=== PATIENT | female | born 1955 | race Caucasian/White ===

== ENCOUNTER → 2017-06-19 | Outpatient (CLI) | payer BC ==
[~2017-06-19] MED LIST: B-COTAB18 PO; CALC-206 PO; NAPR-1169 PO; ZNT/150 PO
--- NOTE | 2017-06-19 16:09 | MAMMOGRAPHY REPORT ---
BILATERAL DIGITAL SCREENING MAMMOGRAM TOMOSYNTHESIS WITH CAD: 06/19/2017 CLINICAL HISTORY: Routine screening. Patient has no complaints. TECHNIQUE: Breast tomosynthesis in addition to standard 2D mammography was performed. Current study was also evaluated with a Computer Aided Detection (CAD) system. COMPARISON: Comparison is made to exams dated: 06/14/2015 mammogram, 06/17/2016 mammogram, 06/13/2014 m ammogram, 06/09/2013 mammogram, 06/08/2012 mammogram, and 06/03/2011 mammogram - [facility] enter. BREAST COMPOSITION: The tissue of both breasts is extremely dense, which lowers the sensitivity of m ammography. FINDINGS: No suspicious masses, calcifications, or areas of architectural distortion are noted in ei ther breast. There has been no significant interval change compared to prior exams. Bilateral benign -appearing calcifications are not significantly changed. IMPRESSION: ACR BI-RADS CATEGORY 2: BENIGN There is no mammographic evidence of malignancy. A 1 year screening mammogram is recommended. The pa tient will receive written notification of the results. Approximately 10% of breast cancers are not detected with mammography. A negative mammographic report should not delay biopsy if a clinically suggestive mass is present. Yudelka Morel M.D. /:06/19/2017 15:50:29 [employer] Mechanic: Nicolas Charles M, [facility] letter sent: Normal 1/2 BI-RADS Code: ACR BI-RADS Category 2: Benign
== END | disposition home or self-care (01) ==
LOC: C.MAMM 14:27
PROVIDERS: ATTEND Family Medicine
DX: Z12.31 Encounter for screening mammogram for malignant neoplasm of breast (principal)

== ENCOUNTER 2023-09-02 17:30 | Inpatient (IN) ==
--- NOTE | 2023-09-02 18:01 | ED Triage Note ---
Date of Service September 02, 2023 History of Present Illness This patient was briefly evaluated while in triage. An abbreviated physical exam was performed. This patient is a 67-year-old Female who presents to the ED for evaluation of vertigo. Headache as well. Worst headache of life this am. No trauma or injury. Dizzy like room spinning. Not eating now. Physical Exam GENERAL: 67 year old female. In wheeled chair with sunglasses on holding onto L armrest. SKIN: No lesions or rashes. HEART: Regular rate and rhythm. LUNGS: Clear to auscultation. NEURO: Alert and oriented. No deficits. MUSCULOSKELETAL: No deformities to inspection of the extremities. PSYCH: Patient is pleasant and answers questions appropriately. Initial orders for labs and / or imaging were placed and patient was placed in the waiting area until a bed is available. Please see further documentation for the full ED course.
[2023-09-02] MEDS ORDERED: diphenhydrAMINE 50 MG/ML VIAL IV STA (18:10)
[2023-09-02] MEDS ORDERED: ACETAMINOPHEN 1000 MG/100 ML IV IV STA (18:10)
[2023-09-02] MEDS ORDERED: PROCHLORPERAZINE 5 MG/ML 2 ML VIAL IV STA (18:10)
[2023-09-02] MEDS ORDERED: MAGNESIUM SULFATE / D5W 1 GM/100 ML BAG IV ONE (18:10)
[2023-09-02] MEDS ORDERED: SODIUM CHLORIDE 0.9% 1,000 ML IV SCH (18:15)
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
[2023-09-02 18:56] LABS: Basophils # (auto) 0.05 K/uL (0.00-0.20); Basophils % (auto) 0.6 %; Eosinophils # (auto) 0.08 K/uL (0.00-0.50); Hematocrit (blood only) 50.8 % (37.0-47.0); Hemoglobin 17.5 g/dl (12.0-16.0); Immature Granulocytes # (auto) 0.03 K/uL (0.01-0.20); Immature Granulocytes % (auto) 0.4 %; Lymphocytes # (auto) 1.91 K/uL (1.20-3.40); Lymphocytes % (auto) 23.4 %; Mean Corpuscular Hemoglobin 30.3 pg (25.0-34.0); Mean Corpuscular Hgb Conc 34.4 g/dL (32.0-36.0); Mean Platelet Volume 9.8 fL (9.4-12.4); Monocytes # (auto) 0.53 K/uL (0.11-0.59); Monocytes % (auto) 6.5 %; Neutrophils # (auto) 5.57 K/uL (1.40-6.50); Neutrophils % (auto) 68.1 %; Platelet Count 331 K/uL (130-400); RDW Coefficient of Variation 12.3 % (11.5-14.5); RDW Standard Deviation 39.5 fL (36.4-46.3); Red Blood Count 5.77 M/uL (4.20-5.40); White Blood Count 8.17 K/ul (4.8-10.8)
[2023-09-02 18:59] LABS: Albumin Globulin Ratio 1.5 (0.9-2); Albumin Level 4.6 gm/dl (3.4-5.0); BUN Creatinine Ratio 21.7 (10-20); Bilirubin,Total 0.8 mg/dl (0.2-1.0); Calcium 10.3 mg/dl (8.6-10.3); Creatinine Clr Calc Pharmacy 67.8 ml/min; Est GFR (African American) 85.2 ml/min; Est GFR (Non-African American) 73.5 ml/min; Globulin 3.1 gm/dl (2.5-4.0); Potassium 3.6 mmol/L (3.5-5.1); Total Protein 7.7 gm/dl (6.0-8.3)
[2023-09-02] MEDS ORDERED: DEXAMETHASONE SOD INJ 4 MG/ML VIAL IV STA (19:02)
[2023-09-02 19:12] LABS: Partial Thromboplastin Time 26.8 Seconds (21.0-31.0); Prothrombin Time 10.9 Seconds (9.0-12.0)
[2023-09-02] MEDS ORDERED: OPTIRAY 320 500ml IV ONE (19:15)
--- NOTE | 2023-09-02 20:24 | CT Scan Report ---
Exam(s): CT HEAD Without Contrast EXAM: CT Head Without Intravenous Contrast CLINICAL HISTORY: Reason for exam: Headache, dizziness. TECHNIQUE: Axial computed tomography images of the head/brain without intravenous contrast. CTDI is 29 mGy and DLP is 448.01 mGy-cm. Automated exposure control was utilized for the study. A dose lowering technique was utilized adhering to the principles of ALARA. COMPARISON: Head CT 09/01/23. FINDINGS: Brain: Stable hyperdense appearance of the basilar tip, demonstrated to be an aneurysm on CTA. See separately dictated CTA head. No mass effect or acute infarct. No acute hemorrhage. Mild atrophy and chronic white matter disease. No interval change. Ventricles: No hydrocephalus or midline shift. Bones/joints: No acute finding. Soft tissues: No scalp hematoma. Sinuses: Clear. Mastoid air cells: No mastoid effusion. IMPRESSION: 1. Basilar tip aneurysm, better seen on separately dictated CTA, see that report. 2. Mild age related findings. 3. No acute infarct, bleed, or acute intracranial abnormality. 4. No significant interval change. Electronically signed by: Jacquelyn Monreal M.D. 09/02/23 20:23 PM
--- NOTE | 2023-09-02 20:26 | CT Scan Report ---
Exam(s): CTA NECK With Contrast IV Amt: 114 ml optiray 320 EXAM: CT Angiography Neck With Intravenous Contrast CLINICAL HISTORY: Reason for exam: vertigo/MCDONALD. TECHNIQUE: Routine carotid CT angiography protocol was performed with intravenous contrast. NASCET criteria using the distal ICAs for comparison were used for evaluation of stenoses. CTDI is 10.93 mGy and DLP is 396.71 mGy-cm. Automated exposure control was utilized for the study. A dose lowering technique was utilized adhering to the principles of ALARA. MIP reconstructed images were created and reviewed. CONTRAST: Patient received 114 ml optiray 320 of IV contrast COMPARISON: None. FINDINGS: Right common carotid artery: Patent. Right internal carotid artery: Patent. Right vertebral artery: Patent. Left common carotid artery: Patent. Left internal carotid artery: Patent. Left vertebral artery: Patent. Essentially codominant. Other: No significant atherosclerosis of the aorta or carotid bifurcations. IMPRESSION: 1. No dissection, occlusion, or significant stenosis. CAROTID STENOSIS REFERENCE USING NASCET CRITERIA: % ICA stenosis = (1 - narrowest ICA diameter/diameter of distal cervical ICA) x 100. Mild - <50% stenosis. Moderate - 50-69% stenosis. Severe - 70-94% stenosis. Near occlusion - 95-99% stenosis. Occluded - 100% stenosis. Electronically signed by: Jacquelyn Monreal M.D. 09/02/23 20:25 PM
--- NOTE | 2023-09-02 20:32 | CT Scan Report ---
Exam(s): CTA HEAD With Contrast IV Amt: 114 ml optiray 320 EXAM: CT Angiography Head With Intravenous Contrast CLINICAL HISTORY: Reason for exam: vertigo/MCDONALD. TECHNIQUE: Axial computed tomographic angiography images of the head with intravenous contrast. CTDI is 29 mGy and DLP is 448.01 mGy-cm. Automated exposure control was utilized for the study. A dose lowering technique was utilized adhering to the principles of ALARA. MIP reconstructed images were created and reviewed. Mild motion artifact. CONTRAST: Patient received 114 ml optiray 320 of IV contrast COMPARISON: Head CT done earlier . FINDINGS: Right internal carotid artery: Patent. Right anterior cerebral artery: Patent. Right middle cerebral artery: Patent. Right posterior cerebral artery: Patent. Right vertebral artery: Patent. Left internal carotid artery: Patent. Left anterior cerebral artery: Patent. Left middle cerebral artery: Patent. Left posterior cerebral artery: Patent. Left vertebral artery: Patent. Basilar artery: Bulbous basilar tip, ovoid aneurysm measures 7.5 x 6.7 x 4.7 mm. Junctional dilatation basilar tip. Other: IMPRESSION: 1. Basilar tip aneurysm, 7 mm. 2. No other aneurysm. 3. No large vessel occlusion. Electronically signed by: Jacquelyn Monreal M.D. 09/02/23 20:31 PM
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
[2023-09-02] MEDS: LACTATED RINGER'S 1,000 ML IV SCH (23:00)
[2023-09-03] MEDS ORDERED: ACETAMINOPHEN 325 MG TAB PO PRN (00:16)
[2023-09-03] MEDS ORDERED: PROCHLORPERAZINE 5 MG in SYRINGE 4 ML IV PRN (00:16)
[2023-09-03] MEDS ORDERED: FAMOTIDINE 40 MG TABLET PO ONE (00:16)
[2023-09-03] MEDS ORDERED: amLODIPine BESYLATE 5 MG TAB PO ONE (00:16)
[2023-09-03] MEDS ORDERED: IBUPROFEN 800 MG TAB PO PRN (00:16)
[2023-09-03] MEDS ORDERED: ALBUTEROL HFA 8 GM INHALER INH PRN (00:16)
--- NOTE | 2023-09-03 01:13 | Magnetic Resonance Report ---
Exam(s): MRA HEAD Without Contrast EXAM: MR Angiography Head Without Intravenous Contrast CLINICAL HISTORY: Reason for exam: basilar aneurysm, MCDONALD. TECHNIQUE: Magnetic resonance angiography images of the head without intravenous contrast. Mild motion artifact. COMPARISON: CTA head done earlier. FINDINGS: Right internal carotid artery: Patent. Right anterior cerebral artery: Patent. Right middle cerebral artery: Patent. Right posterior cerebral artery: Patent. Right vertebral artery: Patent. Left internal carotid artery: Patent. Left anterior cerebral artery: Patent. Left middle cerebral artery: Patent. Left posterior cerebral artery: Patent. Left vertebral artery: Patent. Basilar artery: Patent. Stable 7 mm aneurysm of the basilar tip. Mild motion and pulsation artifact. Other: IMPRESSION: 1. Basilar tip aneurysm. 2. No other aneurysm, and no large vessel occlusion. Electronically signed by: Jacquelyn Monreal M.D. 09/03/23 01:13 AM
[2023-09-03] MEDS ORDERED: ZOLPIDEM TARTRATE 10 MG TAB PO STA (01:14)
[2023-09-03 05:08] LABS: Hematocrit (blood only) 44.3 % (37.0-47.0); Hemoglobin 15.2 g/dl (12.0-16.0); Mean Corpuscular Hgb Conc 34.3 g/dL (32.0-36.0); Mean Corpuscular Volume 87.5 fL (80.0-100.0); Mean Platelet Volume 9.6 fL (9.4-12.4); Platelet Count 293 K/uL (130-400); RDW Coefficient of Variation 12.1 % (11.5-14.5); RDW Standard Deviation 38.5 fL (36.4-46.3); Red Blood Count 5.06 M/uL (4.20-5.40); White Blood Count 4.95 K/ul (4.8-10.8)
[2023-09-03 05:11] LABS: BUN Creatinine Ratio 21.2 (10-20); Calcium 9.2 mg/dl (8.6-10.3); Creatinine Clr Calc Pharmacy 85.3 ml/min; Est GFR (African American) 106.7 ml/min; Est GFR (Non-African American) 92.1 ml/min
[2023-09-03] MEDS: LACTATED RINGER'S 1,000 ML IV SCH (06:34)
--- NOTE | 2023-09-03 07:59 | Hospitalist Progress Note ---
Date of Service September 03, 2023 Assessment & Plan (1) Vertigo: Plan: 67 y/o female with PMHx of depression and RA presenting with 4 days of persistent vertigo, gait instability, and headache. Patient was seen in the ED 09/01 and was found to have a 6-7 mm basilar tip aneurysm. Symptoms have persisted which prompted her to seek care. Repeat imaging without significant change. Symptomatic improvement with medication administration. Reports dexamethasone helped specifically. Pred taper for suspected labyrinthitis. Compazine PRN for nausea Meclizine 25 mg PO TID Prednisone taper - 60 mg x 5, 40 mg x1, 30 mg x1, 20 mg x1, 10 mg x1, 5 mg x1 Tele for cardiac monitoring Fluid resuscitation with LR x 2 L #Basilar artery aneurysm Patient with 7 mm basilar tip aneurysm. No evidence of thrombosis, dissection or rupture noted on imaging. This is newly discovered as of 09/01/2023 when patient presented to the ER with vertigo. She was recommended to follow-up with neurosurgery. Repeat imaging today demonstrates stable aneurysm. Neurology consultation appreciated Patient should follow-up with neurosurgery for further evaluation of management of her newly found aneurysm. Could consider surgical intervention at the current size of 7 mm. Patient and family would greatly appreciate assistance with facilitating neurosurgery follow-up prior to discharge #Elevated hemoglobin - resolved Elevated on admission. Has resolved at this point with fluid resuscitation. Continue to monitor. #HTN Chronic. Stable. Blood pressure at goal Continue amlodipine 5 mg p.o. nightly #Anxiety Chronic. Stable. Patient and family report a lot of personal stress in the patient's life at this time. She was recently started on Zoloft Continue Zoloft 50 mg p.o. daily #GERD Chronic. Stable. Continue Pepcid Code status: full DVT ppx: low risk, ambulation FENGI: IVF LR @ 125 mL, regular diet Dispo: med/surg with tele, will need f/u with neurosurgery (2) Basilar artery aneurysm: (3) Elevated hemoglobin: (4) Hypertension: (5) Anxiety: (6) GERD (gastroesophageal reflux disease): (7) Acute labyrinthitis: Admission and Anticipated Discharge Date Admission Date: September 02, 2023 Physical Exam Physical Exam: General: patient resting comfortably, NAD, non-toxic in appearance, AA&O x 4 Skin: warm, dry, intact, no rashes or lesions HEENT: NC/AT, PERRL, EOMI with nausea/vertigo induced by eye movement, anicteric sclera, conjunctiva without injection, external ear normal to in spection and nontender, nares patent, moist mucus membranes, dentition intact, no oropharyngeal lesions, neck supple, trachea midline, no LAD, no thyromegaly, no JVD Heart: +S1/S2, regular, no m/r/g Lungs: equal air entry bilaterally, no rales/rhonchi/wheezes Abd: +BS, soft, NT/ND, no masses/organomegaly/ascites Ext: warm, 2+ pulses in UE/LE bilaterally, no clubbing/cyanosis or edema Neuro: nonfocal, patient AA&O x 4, speech intact, no facial droop, moving all extremities on command with equal strength 5/5 No nystagmus. No dysmetria Results & Data Results & Data Vital Signs (Past 12 Hours) Vital Signs Temp Pulse Pulse Resp BP BP Pulse Ox 09/03/23 07:04 36.4 C L 64 16 121/78 98 09/03/23 03:00 73 17 94 09/03/23 02:00 94 09/03/23 01:50 94 09/03/23 01:41 98 09/03/23 01:30 93 09/03/23 01:20 95 09/03/23 01:11 98 09/03/23 01:00 94 09/03/23 00:50 94 09/03/23 00:40 96 09/03/23 00:30 92 09/03/23 00:20 96 09/03/23 00:10 94 09/03/23 00:00 95 09/02/23 23:50 96 09/02/23 23:40 93 09/02/23 23:30 18 97 09/02/23 23:20 16 92 09/02/23 23:10 15 91 09/02/23 23:00 18 95 09/02/23 22:50 19 94 09/02/23 22:40 14 09/02/23 22:30 16 09/02/23 22:20 14 09/02/23 22:10 66 15 96 09/02/23 22:00 63 16 93 09/02/23 22:00 129/74 09/02/23 21:52 62 17 95 09/02/23 21:52 132/90 09/02/23 21:50 61 24 95 09/02/23 21:40 59 L 12 09/02/23 21:30 69 6 L 09/02/23 21:20 69 15 09/02/23 21:10 64 14 09/02/23 21:00 70 16 90 09/02/23 20:50 64 15 97 09/02/23 20:40 64 12 09/02/23 20:30 63 16 98 09/02/23 20:20 66 15 96 09/02/23 20:10 69 15 94 09/02/23 20:00 71 18 94 09/02/23 20:00 147/83 H O2 Del Method 09/03/23 07:04 Room Air 09/03/23 03:00 Room Air 09/03/23 02:00 09/03/23 01:50 09/03/23 01:41 09/03/23 01:30 09/03/23 01:20 09/03/23 01:11 09/03/23 01:00 09/03/23 00:50 09/03/23 00:40 09/03/23 00:30 09/03/23 00:20 09/03/23 00:10 09/03/23 00:00 09/02/23 23:50 09/02/23 23:40 09/02/23 23:30 09/02/23 23:20 09/02/23 23:10 09/02/23 23:00 09/02/23 22:50 09/02/23 22:40 09/02/23 22:30 09/02/23 22:20 09/02/23 22:10 09/02/23 22:00 09/02/23 22:00 09/02/23 21:52 09/02/23 21:52 09/02/23 21:50 09/02/23 21:40 09/02/23 21:30 09/02/23 21:20 09/02/23 21:10 09/02/23 21:00 09/02/23 20:50 09/02/23 20:40 09/02/23 20:30 09/02/23 20:20 09/02/23 20:10 09/02/23 20:00 09/02/23 20:00 (4) Hypertension Hypertension type: unspecified Qualified Code(s): I10 - Essential (primary) hypertension
--- NOTE | 2023-09-03 08:26 | Electrocardiogram Report ---
Test Reason : Blood Pressure : / mmHG Vent. Rate : 077 BPM Atrial Rate : 077 BPM P-R Int : 152 ms QRS Dur : 070 ms QT Int : 398 ms P-R-T Axes : 000 021 061 degrees QTc Int : 450 ms Normal sinus rhythm Normal ECG When compared with ECG of 01-SEP-2023 11:47, No significant change was found Confirmed by Junior Tapia ([id number] on 09/03/2023 8:25:49 AM Referred By: Juan Irving Confirmed By:Junior Tapia
[2023-09-03] MEDS ORDERED: predniSONE 20 MG TAB PO SCH (09:00)
[2023-09-03] MEDS: MONTELUKAST SODIUM 10 MG TABLET PO SCH (09:50)
[2023-09-03] MEDS: MECLIZINE HCL 25 MG TAB PO SCH ×3 (09:50→19:54)
[2023-09-03] MEDS: FAMOTIDINE 40 MG TABLET PO SCH ×2 (09:50→19:55)
[2023-09-03] MEDS: SERTRALINE HCL 50 MG TABLET PO SCH (09:50)
[2023-09-03] MEDS: prednisoLONE sod phosphate 15 MG/5 ML PO SCH ×2 (09:50→11:02)
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
--- NOTE | 2023-09-03 11:40 | Magnetic Resonance Report ---
MR brain IAC wo con HISTORY: 67 years-old Female vertigo, headache, basilar tip aneurysm acute vertigo COMPARISON: Head CT 09/02/2023 TECHNIQUE: Multiplanar multisequence MRI of the brain was obtained without the use of IV contrast uti lizing internal protocol FINDINGS: There is an apparent 4 mm focus of cortically-based restricted diffusion within the superior right fr ontal lobe on image 21 series 4. No acute or subacute territorial infarct. Midline structures are unr emarkable. Degenerative changes of the imaged cervical spine. There is no acute intracranial hemorrhage, midline shift, abnormal extra-axial collection, hydroceph alus or intra-axial mass. Mild scattered T2/FLAIR hyperintense foci noted throughout the white matter . Unremarkable appearance of the internal auditory canals, 7th and 8th cranial nerves. The cisternal portions of the 5th cranial nerves are also within normal limits. Cerebral venous sinuses and major arterial flow voids are unremarkable. Basilar tip aneurysm redemons trated measuring up to approximately 8 x 7 mm. Skull, orbits and soft tissues are unremarkable. IMPRESSION: 1. 4 mm focus of apparent increased diffusion-weighted signal of the superior right frontal lobe may be artifactual or represent an acute versus subacute lacunar infarct. 2. No acute territorial infarct, midline shift or intracranial hemorrhage. 3. Suggestion of mild chronic microvascular ischemic disease. 4. Basilar tip saccular aneurysm again noted. ACT 112: Negative or not required by law. The above report was generated using voice recognition software. It may contain grammatical, syntax o r spelling errors. Electronically signed by: Aydin Suarez M.D. 09/03/2023 11:38 AM
[2023-09-03 14:30] LABS: Estimated Average Glucose 123 mg/dl; Hemoglobin A1C 5.9 % (4.5-5.6)
[2023-09-03 14:35] LABS: Chol HDL Ratio 3.3 (0-5)
--- NOTE | 2023-09-03 15:08 | XCELERA ---
[id number] \\[facility] [id number]
--- NOTE | 2023-09-03 16:22 | Hospitalist Progress Note ---
Date of Service September 03, 2023 Assessment & Plan (1) Vertigo: Plan: 67 y/o female with PMHx of depression and RA presenting with 4 days of persistent vertigo, gait instability, and headache. Patient was seen in the ED 09/01 and was found to have a 6-7 mm basilar tip aneurysm. Symptoms have persisted which prompted her to seek care. #BBPV #Labyrinthitis Repeat imaging without significant change. Symptomatic improvement with medication administration. Reports dexamethasone helped specifically. PT/OT consult for Bridger maneuver. Prednisolone taper for suspected labyrinthitis. Compazine PRN for nausea Meclizine 25 mg PO TID Prednisolone taper - 60 mg x 5, 40 mg x1, 30 mg x1, 20 mg x1, 10 mg x1, 5 mg x1 Tele for cardiac monitoring Bridger with PT tomorrow #Basilar artery aneurysm Patient with 7 mm basilar tip aneurysm. No evidence of thrombosis, dissection or rupture noted on imaging. This is newly discovered as of 09/01/2023 when patient presented to the ER with vertigo. She was recommended to follow-up with neurosurgery. Repeat imaging today demonstrates stable aneurysm. Neurology consultation appreciated Patient should follow-up with neurosurgery for further evaluation of management of her newly found aneurysm. Could consider surgical intervention at the current size of 7 mm. Patient and family would greatly appreciate assistance with facilitating neurosurgery follow-up prior to discharge #?area of ischemia MRI with 4 mm area of increased signal in the superior right frontal lobe may be artifactual or represent an acute versus subacute lacunar infarct. Likely not related to current symptoms. Is indicative of microvascular disease. Would medically optimize with rosuvastatin 10 mg as LDL 122. BP control with amlodipine. HbA1c 5.9. Recommend lifestyle modifications. #Elevated hemoglobin - resolved Elevated on admission. Has resolved at this point with fluid resuscitation. Continue to monitor. #HTN Chronic. Stable. Blood pressure at goal Continue amlodipine 5 mg p.o. nightly #Anxiety Chronic. Stable. Patient and family report a lot of personal stress in the patient's life at this time. She was recently started on Zoloft Continue Zoloft 50 mg p.o. daily #GERD Chronic. Stable. Continue Pepcid Code status: full DVT ppx: low risk, ambulation FENGI: regular diet Dispo: med/surg with tele, will need f/u with neurosurgery (2) Basilar artery aneurysm: (3) Elevated hemoglobin: (4) Hypertension: (5) Anxiety: (6) GERD (gastroesophageal reflux disease): (7) Acute labyrinthitis: Admission and Anticipated Discharge Date Admission Date: September 02, 2023 Supervising Physician Co-Signing Physician Notes Resident Physician Supervision Note: I independently interviewed and examined the patient and verified the gaxiola history and physical, reviewed labs and image studies and agree with resident findings and care plan. Subjective 67 year old female with history of depression and RA presented to the ER on Friday morning for severe headache and spinning vertigo. The vertigo began on friday at 2PM and followed with a severe headache that was persistent. Patient describes headache yesterday morning as the worse she's ever had. The headaches can be diffuse global or localized to a certain hemisphere of the brain. Current headache is a 2/10 on the pain scale and localized to the right hemisphere. Patient reports that this is the first time she's had vertigo and a headache this bad. Patient has has headaches every morning in the past but it improved with Amlodipine and Zoloft. She was hiking last week in [place] last week and had to drive several hours back and attend work and the [employer] game over the weekend and thinks that she may have over exerted herself. Patient is very sensitive to light and occasionally sees flashes of light. The vertigo is worse with standing and laying completely flat with occasional nausea. There is also ringing in both ears but no aural fullness. Pt reports no head trauma, fever, neck stiffness, confusion, seizures, changes in vision, or changes in sensation in any parts of the body. Physical Exam 2 Physical Exam: General: patient resting comfortably, NAD, non-toxic in appearance HEENT: Head normocephalic, atraumatic, PEERL, EOMI, hearing intact Heart: +S1/S2, regular, no m/r/g Lungs: equal air entry bilaterally, no rales/rhonchi/wheezes Ext: no LE edema Neuro: Normal sensational on face b/l, strength 5/5 b/l in all extremities, no facial droop, no nystagmus normal finger to nose test, negative Dayami-Hallpike maneuver Neurologic: Results & Data Results & Data Vital Signs (Past 12 Hours) Vital Signs Temp Pulse Pulse Resp BP BP Pulse Ox 09/03/23 07:04 36.4 C L 64 16 121/78 98 09/03/23 03:00 73 17 94 09/03/23 02:00 94 09/03/23 01:50 94 09/03/23 01:41 98 09/03/23 01:30 93 09/03/23 01:20 95 09/03/23 01:11 98 09/03/23 01:00 94 09/03/23 00:50 94 09/03/23 00:40 96 09/03/23 00:30 92 09/03/23 00:20 96 09/03/23 00:10 94 09/03/23 00:00 95 09/02/23 23:50 96 09/02/23 23:40 93 09/02/23 23:30 18 97 09/02/23 23:20 16 92 09/02/23 23:10 15 91 09/02/23 23:00 18 95 09/02/23 22:50 19 94 09/02/23 22:40 14 09/02/23 22:30 16 09/02/23 22:20 14 09/02/23 22:10 66 15 96 09/02/23 22:00 63 16 93 09/02/23 22:00 129/74 09/02/23 21:52 62 17 95 09/02/23 21:52 132/90 09/02/23 21:50 61 24 95 09/02/23 21:40 59 L 12 09/02/23 21:30 69 6 L O2 Del Method 09/03/23 07:04 Room Air 09/03/23 03:00 Room Air 09/03/23 02:00 09/03/23 01:50 09/03/23 01:41 09/03/23 01:30 09/03/23 01:20 09/03/23 01:11 09/03/23 01:00 09/03/23 00:50 09/03/23 00:40 09/03/23 00:30 09/03/23 00:20 09/03/23 00:10 09/03/23 00:00 09/02/23 23:50 09/02/23 23:40 09/02/23 23:30 09/02/23 23:20 09/02/23 23:10 09/02/23 23:00 09/02/23 22:50 09/02/23 22:40 09/02/23 22:30 09/02/23 22:20 09/02/23 22:10 09/02/23 22:00 09/02/23 22:00 09/02/23 21:52 09/02/23 21:52 09/02/23 21:50 09/02/23 21:40 09/02/23 21:30 Laboratory Results 09/03/23 04:30 09/03/23 04:[address] 09/02/23 18:01 FINDINGS: Brain: Stable hyperdense appearance of the basilar tip, demonstrated to be an aneurysm on CTA. See separately dictated CTA head. No mass effect or acute infarct. No acute hemorrhage. Mild atrophy and chronic white matter disease. No interval change. Ventricles: No hydrocephalus or midline shift. Bones/joints: No acute finding. Soft tissues: No scalp hematoma. Sinuses: Clear. Mastoid air cells: No mastoid effusion. IMPRESSION: 1. Basilar tip aneurysm, better seen on separately dictated CTA, see that report. 2. Mild age related findings. 3. No acute infarct, bleed, or acute intracranial abnormality. 4. No significant interval change. Head CTA 09/02/23 18:10 FINDINGS: Right internal carotid artery: Patent. Right anterior cerebral artery: Patent. Right middle cerebral artery: Patent. Right posterior cerebral artery: Patent. Right vertebral artery: Patent. Left internal carotid artery: Patent. Left anterior cerebral artery: Patent. Left middle cerebral artery: Patent. Left posterior cerebral artery: Patent. Left vertebral artery: Patent. Basilar artery: Bulbous basilar tip, ovoid aneurysm measures 7.5 x 6.7 x 4.7 mm. Junctional dilatation basilar tip. IMPRESSION: 1. Basilar tip aneurysm, 7 mm. 2. No other aneurysm. 3. No large vessel occlusion. Neck CTA 09/02/23 18:10 FINDINGS: Right common carotid artery: Patent. Right internal carotid artery: Patent. Right vertebral artery: Patent. Left common carotid artery: Patent. Left internal carotid artery: Patent. Left vertebral artery: Patent. Essentially codominant. Other: No significant atherosclerosis of the aorta or carotid bifurcations. IMPRESSION: 1. No dissection, occlusion, or significant stenosis. Head MRA 09/02/23 21:44 FINDINGS: Right internal carotid artery: Patent. Right anterior cerebral artery: Patent. Right middle cerebral artery: Patent. Right posterior cerebral artery: Patent. Right vertebral artery: Patent. Left internal carotid artery: Patent. Left anterior cerebral artery: Patent. Left middle cerebral artery: Patent. Left posterior cerebral artery: Patent. Left vertebral artery: Patent. Basilar artery: Patent. Stable 7 mm aneurysm of the basilar tip. Mild motion and pulsation artifact. Other: IMPRESSION: 1. Basilar tip aneurysm. 2. No other aneurysm, and no large vessel occlusion. Internal Auditory Canal MRI 09/03/23 09:58 MR brain IAC wo con HISTORY: 67 years-old Female vertigo, headache, basilar tip aneurysm acute vertigo COMPARISON: Head CT 09/02/2023 TECHNIQUE: Multiplanar multisequence MRI of the brain was obtained without the use of IV contrast utilizing internal protocol FINDINGS: There is an apparent 4 mm focus of cortically-based restricted diffusion within the superior right frontal lobe on image 21 series 4. No acute or subacute territorial infarct. Midline structures are unremarkable. Degenerative changes of the imaged cervical spine. There is no acute intracranial hemorrhage, midline shift, abnormal extra-axial collection, hydrocephalus or intra-axial mass. Mild scattered T2/FLAIR hyperintense foci noted throughout the white matter. Unremarkable appearance of the internal auditory canals, 7th and 8th cranial nerves. The cisternal portions of the 5th cranial nerves are also within normal limits. Cerebral venous sinuses and major arterial flow voids are unremarkable. Basilar tip aneurysm redemonstrated measuring up to approximately 8 x 7 mm. Skull, orbits and soft tissues are unremarkable. IMPRESSION: 1. 4 mm focus of apparent increased diffusion-weighted signal of the superior right frontal lobe may be artifactual or represent an acute versus subacute lacunar infarct. 2. No acute territorial infarct, midline shift or intracranial hemorrhage. 3. Suggestion of mild chronic microvascular ischemic disease. 4. Basilar tip saccular aneurysm again noted. Resident Activity Tracking Resident Involvement: Resident Care Provided Care Provided: Adult Hospital Medicine (4) Hypertension Hypertension type: unspecified Qualified Code(s): I10 - Essential (primary) hypertension
[2023-09-03] MEDS: ASPIRIN 81 MG ECTAB PO SCH (18:20)
[2023-09-03] MEDS ORDERED: amLODIPine BESYLATE 5 MG TAB PO SCH (21:00)
[2023-09-03] MEDS ORDERED: ZOLPIDEM TARTRATE 10 MG TAB PO SCH (21:00)
--- NOTE | 2023-09-04 08:16 | Discharge Summary ---
Date of Service September 04, 2023 Admission HPI Per Admitting Provider Chayo Campos is a 67-year-old female with history of depression and rheumatoid arthritis presenting with vertigo. Patient reports that her symptoms began abruptly on 08/30/2023 at 1400. She has been experiencing significant vertigo, sensation that the room is spinning. This is made worse by any type of movement, movement of her eyes as well as postural changes. She has also had nausea and gait instability. Patient reports severe headache as well that has been intermittent since 08/30/2023. Patient was seen in the ER on 09/01/2023 with these complaints. 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 Patient was recommended discharge home with suggestion to follow-up with neurosurgery on a nonemergent basis for further evaluation of the newly discovered aneurysm. She was seen by her PCP today with these complaints. PCP voiced significant concern and recommended that she come back to the ER and have an MRI Admission Exam Per Admitting Provider General: patient resting comfortably, NAD, non-toxic in appearance, AA&O x 4 Skin: warm, dry, intact, no rashes or lesions HEENT: NC/AT, PERRL, EOMI with nausea/vertigo induced by eye movement, anicteric sclera, conjunctiva without injection, external ear normal to inspection and nontender, nares patent, moist mucus membranes, dentition intact, no oropharyngeal lesions, neck supple, trachea midline, no LAD, no thyromegaly, no JVD Heart: +S1/S2, regular, no m/r/g Lungs: equal air entry bilaterally, no rales/rhonchi/wheezes Abd: +BS, soft, NT/ND, no masses/organomegaly/ascites Ext: warm, 2+ pulses in UE/LE bilaterally, no clubbing/cyanosis or edema Neuro: nonfocal, patient AA&O x 4, speech intact, no facial droop, moving all extremities on command with equal strength 5/5 No nystagmus. No dysmetria Principal Diagnosis BPV Discharge Exam General: patient resting comfortably, NAD, non-toxic in appearance HEENT: Head normocephalic, atraumatic, PEERL, EOMI, hearing intact Heart: +S1/S2, regular, no m/r/g Lungs: equal air entry bilaterally, no rales/rhonchi/wheezes Ext: no LE edema Neuro: alert and oriented Psych: appropriate mood and affect Discharge Data Allergies Allergy/AdvReac Type Severity Reaction Status Date / Time hydroxychloroquine Allergy Unknown Hives Verified 09/02/23 16:42 oxycodone Allergy Unknown UNKNOWN Unverified 09/02/23 16:42 Sulfa (Sulfonamide Allergy Unknown UNKNOWN Unverified 09/02/23 16:42 Antibiotics) prednisone Allergy Cramping Unverified 09/02/23 16:42 of the Muscles Consultations 09/02/23 21:02 ED Decision to Admit Stat 09/03/23 00:16 Consult Neurology Routine Ordered Studies Head CT 09/02/23 18:01 FINDINGS: Brain: Stable hyperdense appearance of the basilar tip, demonstrated to be an aneurysm on CTA. See separately dictated CTA head. No mass effect or acute infarct. No acute hemorrhage. Mild atrophy and chronic white matter disease. No interval change. Ventricles: No hydrocephalus or midline shift. Bones/joints: No acute finding. Soft tissues: No scalp hematoma. Sinuses: Clear. Mastoid air cells: No mastoid effusion. IMPRESSION: 1. Basilar tip aneurysm, better seen on separately dictated CTA, see that report. 2. Mild age related findings. 3. No acute infarct, bleed, or acute intracranial abnormality. 4. No significant interval change. Head CTA 09/02/23 18:10 FINDINGS: Right internal carotid artery: Patent. Right anterior cerebral artery: Patent. Right middle cerebral artery: Patent. Right posterior cerebral artery: Patent. Right vertebral artery: Patent. Left internal carotid artery: Patent. Left anterior cerebral artery: Patent. Left middle cerebral artery: Patent. Left posterior cerebral artery: Patent. Left vertebral artery: Patent. Basilar artery: Bulbous basilar tip, ovoid aneurysm measures 7.5 x 6.7 x 4.7 mm. Junctional dilatation basilar tip. IMPRESSION: 1. Basilar tip aneurysm, 7 mm. 2. No other aneurysm. 3. No large vessel occlusion. Neck CTA 09/02/23 18:10 FINDINGS: Right common carotid artery: Patent. Right internal carotid artery: Patent. Right vertebral artery: Patent. Left common carotid artery: Patent. Left internal carotid artery: Patent. Left vertebral artery: Patent. Essentially codominant. Other: No significant atherosclerosis of the aorta or carotid bifurcations. IMPRESSION: 1. No dissection, occlusion, or significant stenosis. Head MRA 09/02/23 21:44 FINDINGS: Right internal carotid artery: Patent. Right anterior cerebral artery: Patent. Right middle cerebral artery: Patent. Right posterior cerebral artery: Patent. Right vertebral artery: Patent. Left internal carotid artery: Patent. Left anterior cerebral artery: Patent. Left middle cerebral artery: Patent. Left posterior cerebral artery: Patent. Left vertebral artery: Patent. Basilar artery: Patent. Stable 7 mm aneurysm of the basilar tip. Mild motion and pulsation artifact. Other: IMPRESSION: 1. Basilar tip aneurysm. 2. No other aneurysm, and no large vessel occlusion. Internal Auditory Canal MRI 09/03/23 09:58 FINDINGS: There is an apparent 4 mm focus of cortically-based restricted diffusion within the superior right frontal lobe on image 21 series 4. No acute or subacute territorial infarct. Midline structures are unremarkable. Degenerative changes of the imaged cervical spine. There is no acute intracranial hemorrhage, midline shift, abnormal extra-axial collection, hydrocephalus or intra-axial mass. Mild scattered T2/FLAIR hyperintense foci noted throughout the white matter. Unremarkable appearance of the internal auditory canals, 7th and 8th cranial nerves. The cisternal portions of the 5th cranial nerves are also within normal limits. Cerebral venous sinuses and major arterial flow voids are unremarkable. Basilar tip aneurysm redemonstrated measuring up to approximately 8 x 7 mm. Skull, orbits and soft tissues are unremarkable. IMPRESSION: 1. 4 mm focus of apparent increased diffusion-weighted signal of the superior right frontal lobe may be artifactual or represent an acute versus subacute lacunar infarct. 2. No acute territorial infarct, midline shift or intracranial hemorrhage. 3. Suggestion of mild chronic microvascular ischemic disease. 4. Basilar tip saccular aneurysm again noted. Hospital Course (1) Vertigo: 67 y/o female with PMHx of depression and RA presenting with 4 days of persistent vertigo, gait instability, and headache. Patient was seen in the ED 09/01 and was found to have a 6-7 mm basilar tip aneurysm. Symptoms have persisted which prompted her to seek care. #BBPV #Labyrinthitis Repeat imaging without significant change. Symptomatic improvement with medication administration. Reports dexamethasone helped specifically. PT/OT consult for Bridger maneuver. Prednisolone taper for suspected labyrinthitis - 60 mg x 5, 40 mg x1, 30 mg x1, 20 mg x1, 10 mg x1, 5 mg x1. Bridger successful. Given outpatient PT referral if needed. 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 No evidence of thrombosis, dissection or rupture noted on imaging. This is newly discovered as of 09/01/2023 when patient presented to the ER with vertigo. She was recommended to follow-up with neurosurgery. Repeat imaging today demonstrates stable aneurysm. Patient should follow-up with neurosurgery for further evaluation of management of her newly found aneurysm. Could consider surgical intervention at the current size of 7 mm. Patient and family would greatly appreciate assistance with facilitating neurosurgery follow-up prior to discharge #small ischemic stroke MRI with 4 mm area of increased signal in the superior right frontal lobe may be artifactual or represent an acute versus subacute lacunar infarct. Likely not related to current symptoms. Is indicative of microvascular disease. Would medically optimize with rosuvastatin 10 mg as LDL 122. BP control with amlodipine. HbA1c 5.9. Recommend lifestyle modifications. #Elevated hemoglobin - resolved Elevated on admission. Has resolved at this point with fluid resuscitation. Continue to monitor. #HTN Chronic. Stable. Blood pressure at goal Continue amlodipine 5 mg p.o. nightly #Anxiety Chronic. Stable. Patient and family report a lot of personal stress in the patient's life at this time. She was recently started on Zoloft Continue Zoloft 50 mg p.o. daily #GERD Chronic. Stable. Continue Pepcid (2) Basilar artery aneurysm: (3) Elevated hemoglobin: (4) Hypertension: (5) Anxiety: (6) GERD (gastroesophageal reflux disease): (7) Acute labyrinthitis: Total Time Total Time Spent Total Time Spent (In Minutes): See attending attestation Discharge Plan Discharge Items Patient Disposition: Home - Self-Care Reason For Visit: VERTIGO Discharge Diagnosis: BPPV Activity: Per Instructions section Non-emergency contact: Primary Care Provider, Surgeon and Neurologist Call non-emergency contact if: you have any medication questions and your symptoms worsen Follow-up/Referrals: Juan Irving MD [Primary Care Provider] - 09/10/23 2:45 pm Diet: Heart Healthy Addtl Attending Provider Instructions: You were admitted to the hospital for vertigo symptoms. This is likely due to something called benign paroxysmal positional vertigo. This is due to small stones in your inner ear being in the incorrect location. There may also be a component of labyrinthitis contributing to symptoms since you improved with dexamethasone. You were treated with steroids, meclizine, and Bridger maneuvers. You can also do these maneuvers at home and PT provided you with a handout on performing them. We will give you a physical script for physical therapy at [place]. We will also continue your prednisolone taper. You will take 60 mg for three more days, then 40 mg for one day, 30 mg for one day, 20 mg for one day, 10 mg for one day, 5 mg for one day for a total of 10 days. In terms of the small ischemic stroke found incidentally on MRI, I do not think this is the reason for your current symptoms. There is likely a component of vascular disease. We would work on medical optimization at this time. We started a medication called rosuvastatin. You will take this every day to avoid high circulating levels of cholesterol in your vessels. In addition I would recommend lifestyle changes to optimize your blood sugars. Avoid simple carbohydrates as these can spike your blood sugars which leads to insulin resistance and damage to your blood vessels. It is also very important to keep your blood pressure well controlled as that can impact your vascular system as well. In terms of your aneurysm, we would recommend surgical evaluation with a neurosurgeon at [facility]. We have faxed a referral to them. They should contact you within 1-2 days after discharge. A discharge summary will be sent to your primary care physician to ensure continuity of care. Please bring this discharge summary with you to your next office appointment so that your provider can review it at that time. Follow-up appointments: Make a follow-up appointment with your PCP within the next week. It is very important that you follow up with them shortly after discharge from the hospital. We have requested an appointment with [facility] neurosurgery. Please call their office if you do not hear from them. Keep all your follow-up appointments as already scheduled. If you cannot make an appointment, notify your provider. Medications: Your medication list has been reviewed and reconciled upon discharge to ensure accuracy and continuity of care. An updated list of all your medications is included with your hospital discharge paperwork. Please review this list closely, and make note of any changes. Take your medications as instructed; do not skip a dose of your medicines. Make sure all of your doctors know every medicine you are taking (including [id number]-[id number] medicines, vitamins, and supplements). Call your primary care provider before taking any new medicines (including over- the-counter medicines, vitamins, and supplements), because some of these may interact with your current medications, or may make your symptoms worse. Tell your primary care provider if you cannot afford your medications. CONTACT YOUR PRIMARY CARE PROVIDER if you experience any of the following: worsening vertigo symptoms fevers or chills Difficulty following your treatment plan, or difficulty taking medications CALL 911 OR GO TO THE EMERGENCY DEPARTMENT if you experience any of the following: Sudden, severe abdominal pain or nausea/vomiting Severe chest pain, or chest pain that radiates (moves) to your jaw or arm Sudden, severe shortness of breath or difficulty breathing Thank you for allowing us to participate in your care Pending Studies at Discharge: No Stand-Alone Forms: My [facility] [place], Smoking Cessation Medications and DC Order Prescriptions: New prednisolone sodium phosphate 15 mg/5 mL (3 mg/mL) Solution 60 mg PO QAM Qty: 100 0RF Rx Instructions: take 60 mg x3 days (20 mL), 40 mg x1 day (13 mL), 30 mg x1 day (10 mL), 20 mg x1 day (7 mL), 10 mg x1 day (4 mL), 5 mg x1 day (2 mL) aspirin 81 mg Tablet,Delayed Release (Dr/Ec) 81 mg PO QAM Qty: 0 0RF rosuvastatin 10 mg tablet 10 mg PO DAILY Qty: 30 0RF Continued amlodipine 5 mg tablet 5 mg PO HS Qty: 90 3RF sertraline 50 mg tablet 50 mg PO DAILY Qty: 30 2RF montelukast 10 mg tablet 10 mg PO DAILY Qty: 30 11RF zolpidem 10 mg tablet 10 mg PO HS Qty: 90 1RF famotidine 40 mg tablet 40 mg PO BID Qty: 180 3RF ibuprofen 800 mg tablet 800 mg PO Q8 PRN (Reason: Pain) albuterol sulfate 90 mcg/actuation HFA aerosol inhaler 1 inh inhalation QID PRN (Reason: Shortness Of Breath Or Wheezing) ondansetron HCl 4 mg tablet 4 mg PO TID PRN (Reason: nausea and vomiting) 5 Days Qty: 15 0RF prochlorperazine maleate [Compazine] 10 mg tablet 10 mg PO Q8H PRN (Reason: nausea and vomiting) 5 Days Qty: 15 0RF meclizine 25 mg tablet 25 mg PO TID PRN (Reason: dizziness) Qty: 15 0RF Discharge Orders: Discharge Order (Routine); Ordered 09/04/23 Ordered By: Karrie De Leon/Other Patient Handouts: Vertigo Staying Safe, BPPV Admission Data Admit Date/Time: 09/02/23 21:44 Attending Provider: Isela Malik Admit Provider: Kimmy Estes Primary Care Provider: Juan Irving Other Providers: Kimmy Estes; Rohan Arroyo Other Interventions: Discharge Summary Assessment (RN) Last Done: 09/04/23 15:59 Supervising Physician Co-Signing Physician Notes Resident Physician Supervision Note: I independently interviewed and examined the patient and verified the gaxiola history and physical, reviewed labs and image studies and agree with resident findings and care plan. Resident Activity Tracking Resident Involvement: Resident Care Provided Care Provided: Adult Hospital Medicine
[2023-09-04] MEDS: MECLIZINE HCL 25 MG TAB PO SCH ×2 (09:17→13:41)
[2023-09-04] MEDS: prednisoLONE sod phosphate 15 MG/5 ML PO SCH (09:18)
[2023-09-04] MEDS: MONTELUKAST SODIUM 10 MG TABLET PO SCH (09:18)
[2023-09-04] MEDS: FAMOTIDINE 40 MG TABLET PO SCH (09:18)
[2023-09-04] MEDS: SERTRALINE HCL 50 MG TABLET PO SCH (09:18)
[2023-09-04] MEDS: ASPIRIN 81 MG ECTAB PO SCH (09:18)
--- NOTE | 2023-09-04 10:07 | Neurology Progress Note ---
Date of Service September 04, 2023 Assessment & Plan (1) Vertigo: (2) Basilar artery aneurysm: (3) Stroke: Plan 67-year-old female with persistent positional vertigo, possibly benign positional paroxysmal vertigo versus viral labyrinthitis. However, yesterday's brain MRI did reveal a possible small, 4 mm ischemic infarct at the very high right frontal lobe. Although vertigo is more typically ascribed to vertebrobasilar circulation stroke, a small minority of cerebral hemispheric ischemic strokes may also present with vertigo, possibly 8 to 9%. She does not have focal motor or sensory deficits that would localize to an ischemic right frontal lobe infarct. Patient does have a history of hypertension which would of course be a stroke risk factor. She is a non-smoker, does not have diabetes mellitus. Her lipid panel is normal although her LDL is 122. Given that she has a probable ischemic stroke, goal LDL going forward would be 70 or less. Planning to start rosuvastatin. Would also consider obtaining 30-day mobile cardiac outpatient telemetry. Also of importance, this patient was found to have a nonruptured 7 mm basilar tip aneurysm as seen on MRA of the head as well as CT angiography. She will need further semiurgent outpatient evaluation with neurosurgery and will likely need a conventional arteriogram/DSA to determine appropriate treatment going forward. Rupture risk for a 7 mm basilar tip aneurysm estimated to be 14 to 15% over the next 5 years. Ongoing control of hypertension will be important. Should continue with amlodipine. Patient will be seen by physical therapy to potentially address her vertigo, Bridger maneuvers. Patient may also continue to utilize meclizine which has been helpful. Admission and Anticipated Discharge Date Admission Date: September 02, 2023 Subjective Follow-up for vertigo, stroke, cerebral aneurysm The patient continues to complain of vertigo that is worse with movement, in particular lying back in bed. She complains of some difficulty with balance, tendency to list to the left. She denies focal weakness, sensory loss, vision change, or change in speech. Her headache is improving. Brain MRI completed yesterday revealed a possible 4 mm focus of restricted diffusion within the superior right frontal lobe potentially consistent with an acute to subacute ischemic infarct. The finding could be artifactual, however, given its location and small size. The study also revealed chronic microvascular ischemic disease. No evidence of hemorrhage. I independently reviewed these images directly with the patient and her spouse this morning. Meclizine has been helpful to address her vertigo. She has not been seen by physical therapy. No prior history of stroke, does have a history of hypertension. Patient did have a lipid panel completed yesterday as well. Triglycerides 56, cholesterol 192, LDL 122, HDL 59. As described previously, she also has a nonruptured 7 mm basilar tip aneurysm and we are working on coordinating a semiurgent outpatient assessment with neurosurgery at [facility]. There is no evidence of ABORIGINAL CEREMONIAL CELEBRANT hemorrhage on any of her recent brain imaging including 2 CTs of the head including CT angiography, and brain MRI. In light of the finding of the recent probable ischemic infarct on MRI, she has been started on aspirin. Rosuvastatin will potentially be started as well. Review of Systems Constitutional: no fever Eyes: no blind spots, no diplopia and no eye pain Neurologic: as per Subjective / HPI Results & Data Vital Signs (Past 12 Hours) Vital Signs Temp Pulse Pulse Resp BP Pulse Ox O2 Del Method 09/04/23 07:15 36.8 C 59 L 18 148/84 H 97 Room Air 09/04/23 07:00 48 L 09/04/23 03:50 37.2 C 58 L 18 111/63 95 Room Air 09/03/23 23:17 36.9 C 74 18 148/73 H 94 Room Air 09/03/23 21:59 71 Diagnostic Findings Echocardiogram completed yesterday revealed no interatrial shunt, normal left ventricular structure and function, EF 55 to 60%, normal left atrial size. MRI as described above. Exam (Neuro) Constitutional: well developed and well nourished; no acute distress Neurologic: Oriented to:: Person, Place and Time Memory: Short Term Intact and Remote Intact Attention: Span Intact and Concentration Intact Speech Fluency: negative Dysarthria or Dysfluency Speech Aphasia: negative Aphasia Fund of Knowledge: Current Events, Past History and Vocabulary Cranial Nerves: Normal II, III, IV, , V, VII, VIII, IX, X, XI and XII Motor Strength: Normal Lower Extremities and Normal Upper Extremities; negative Pronator Drift or Hemiparesis Muscle Bulk/Involuntary Movements: No Involuntary Movements; negative Muscle Atrophy Sensation: Light Touch Intact, Pain/Temperature Intact and Proprioception Intact Coordination: Normal; negative Dysdiadochokinesia, Finger-Nose Abnormal or Heel-Cobb Abnormal Deep Tendon Reflexes: Rt Biceps: 2+, Lt Biceps: 2+, Rt Patellar: 2+ and Lt Patellar: 2+ Special Tests: negative Babinski Present Details: No signs of hemisensory neglect Coding Level of Care Code 76180 SUB INP/OBS CARE 3/50MIN Diagnoses Vertigo R42 Basilar artery aneurysm I72.5 Stroke I63.9 Time Spent (min) 55
== END 2023-09-04 16:30 | disposition home or self-care (01) | DRG 149 ==
LOC: ED 17:30 → EDINP 21:44 → SUATTDRO 21:44 → 2W 09-03 13:56